=== PATIENT | male | born 1960 | race Caucasian/White ===

== ENCOUNTER 2016-08-28 15:09 | Emergency (ER) | payer OTHER ==
[~2016-08-28] VITALS: Ht 177.8 cm; Wt 92.5 kg
[~2016-08-28 15:09] MED LIST: 378 PO; BACTRIM DS1 TAB PO; CLINDAMYCIN HC300 MG PO; GLU850 PO; HYD25 PO; LAC PO; METFORMIN850 MG PO; METOPROLOL TART25 M1 PO; NOR10 PO; PRAVASTATIN SOD40 M1 PO; PRAVASTATIN20 MG PO; ZESTRIL20 MG PO; ZESTRIL20 PO
[2016-08-28 18:11] VITALS: BP 167/92
== END 2016-08-28 18:11 | disposition home or self-care (01) ==
LOC: ED 15:09
DX: L97.919 Non-pressure chronic ulcer of unspecified part of right lower leg with unspecified severity (principal); E11.9 Type 2 diabetes mellitus without complications; I10 Essential (primary) hypertension; E78.00 Pure hypercholesterolemia, unspecified; Z79.84 Long term (current) use of oral hypoglycemic drugs; Z89.511 Acquired absence of right leg below knee; Z88.0 Allergy status to penicillin
CPT/HCPCS: 82962; J0690; J1885

== ENCOUNTER 2016-10-25 12:18 | Inpatient (IN) | payer OTHER ==
[~2016-10-25] VITALS: Ht 177.8 cm; Wt 92.7 kg
[2016-10-25 16:03] LABS: BASOPHIL % 0.5 % (0-2); PLATELET COUNT 241 x10^3mcL (130-400); RED CELL DISTRIBUTION WIDTH 14.1 % (11.5-14.5)
[2016-10-25 16:13] LABS: CALCIUM 9.2 mg/dL (8.5-10.1); CARBON DIOXIDE 24.4 mmol/L (21-32); CHLORIDE SERUM 100 mmol/L (98-107); CREATININE SERUM 1.1 mg/dL (0.7-1.3); GFR1 > 60 mL/min; GLUCOSE SERUM 210 mg/dL (74-106); POTASSIUM SERUM 4.3 mmol/L (3.5-5.1); SODIUM SERUM 135 mmol/L (136-145)
[2016-10-25] MEDS ORDERED: APAP/HYDROCODON1 T11 PO (17:15)
[2016-10-25 18:00] VITALS: BP 159/82
[2016-10-25 18:03] LABS: CHOLESTEROL/HDL RATIO 2.6; MAGNESIUM 2.1 mg/dL (1.8-2.4); PHOSPHOROUS 3.5 mg/dL (2.5-4.9)
[2016-10-25 18:04] VITALS: BP 159/82
[2016-10-25 18:08] LABS: T3 TOTAL 1.13 ng/mL
[2016-10-25 18:09] LABS: FREE T4 1.13 ng/dL (0.76-1.46); FREE THYROXINE INDEX 3.2 ug/dL (1.4-4.5); T4(THYROXINE) 9.7 ug/dL (4.7-13.3)
[2016-10-25 21:47] VITALS: BP 130/75
[2016-10-26 02:48] LABS: microscopic required? YES; urine erythrocyte TRACE (NEGATIVE)
[2016-10-26 03:03] LABS: AMPHETAMINE QUAL UR NONE DETECTED (NEG <=1000)
[2016-10-26 05:55] VITALS: BP 144/82
[2016-10-26 06:03] LABS: BASOPHIL % 0.3 % (0-2); PLATELET COUNT 232 x10^3mcL (130-400); RED CELL DISTRIBUTION WIDTH 13.9 % (11.5-14.5)
[2016-10-26 06:40] LABS: ALKALINE PHOSPHATASE 221 U/L (46-116); ALT/SGPT 39 U/L (16-63); AST/SGOT 26 U/L (15-37); BILIRUBIN TOTAL 0.7 mg/dL (0.20-1.00); CALCIUM 8.9 mg/dL (8.5-10.1); CARBON DIOXIDE 26.1 mmol/L (21-32); CHLORIDE SERUM 103 mmol/L (98-107); CREATININE SERUM 1.1 mg/dL (0.7-1.3); GFR1 > 60 mL/min; GLUCOSE SERUM 143 mg/dL (74-106); MAGNESIUM 1.9 mg/dL (1.8-2.4); PHOSPHOROUS 3.5 mg/dL (2.5-4.9); POTASSIUM SERUM 4.5 mmol/L (3.5-5.1); SODIUM SERUM 139 mmol/L (136-145)
[2016-10-26 06:41] LABS: ALBUMIN 3.1 g/dL (3.4-5.0); TOTAL PROTEIN, SERUM 8.4 g/dL (6.4-8.2)
[2016-10-26 09:34] VITALS: BP 124/67
[2016-10-26 12:40] LABS: IRON 91 ug/dL (65-170)
[2016-10-26 12:42] LABS: TOTAL IRON BINDING CAPACITY 231 ug/dL (250-450)
[2016-10-26 13:01] LABS: RED BLOOD CELLS 3.99 M/mm3 (4.52-5.90)
[2016-10-26 13:04] VITALS: BP 124/74
[2016-10-26 16:52] VITALS: BP 95/53
[2016-10-26 21:30] VITALS: BP 140/81
[2016-10-27 05:35] VITALS: BP 139/80
[2016-10-27 06:16] LABS: BASOPHIL % 0.4 % (0-2); PLATELET COUNT 193 x10^3mcL (130-400); RED CELL DISTRIBUTION WIDTH 14.2 % (11.5-14.5)
[2016-10-27 06:31] LABS: CARBON DIOXIDE 26.7 mmol/L (21-32); CHLORIDE SERUM 101 mmol/L (98-107); CREATININE SERUM 1.1 mg/dL (0.7-1.3); GFR1 > 60 mL/min; GLUCOSE SERUM 118 mg/dL (74-106); POTASSIUM SERUM 4.9 mmol/L (3.5-5.1); SODIUM SERUM 137 mmol/L (136-145)
[2016-10-27 09:17] VITALS: BP 147/81
[2016-10-27 17:26] VITALS: BP 136/69
[2016-10-27 21:31] VITALS: BP 152/79
[2016-10-28 05:47] VITALS: BP 115/63
[2016-10-28 09:24] VITALS: BP 132/75
[2016-10-28] MEDS ORDERED: LAC PO (13:31)
[2016-10-28] MEDS ORDERED: METFORMIN HCL1000 MG PO (13:32)
[2016-10-28] MEDS ORDERED: NEU300 PO (13:32)
[2016-10-28] MEDS ORDERED: CLEOCIN HCL300 MG PO (13:34)
[2016-10-28] MEDS ORDERED: LEVAQUIN750 MG PO (13:35)
[2016-10-28 14:10] VITALS: BP 132/75
== END 2016-10-28 16:45 | disposition home or self-care (01) | DRG 380 ==
LOC: ED 12:18 → DU 17:09 → MU 10-26 17:38
PROVIDERS: Emergency Medicine; ADMIT Family Medicine
PROC: 0JBR0ZZ Excision of Left Foot Subcutaneous Tissue and Fascia, Open Approach (ICD-10-PCS; principal; 2016-10-25)
PROC: 0HBRXZZ Excision of Toe Nail, External Approach (ICD-10-PCS; 2016-10-27)
PROC: 0HBRXZZ Excision of Toe Nail, External Approach (ICD-10-PCS; 2016-10-27)
PROC: 0HBRXZZ Excision of Toe Nail, External Approach (ICD-10-PCS; 2016-10-27)
PROC: 0HBRXZZ Excision of Toe Nail, External Approach (ICD-10-PCS; 2016-10-27)
PROC: 0HBRXZZ Excision of Toe Nail, External Approach (ICD-10-PCS; 2016-10-27)
DX: E11.621 Type 2 diabetes mellitus with foot ulcer (principal); L97.421 Non-pressure chronic ulcer of left heel and midfoot limited to breakdown of skin; N17.0 Acute kidney failure with tubular necrosis; E44.0 Moderate protein-calorie malnutrition; D68.69 Other thrombophilia; E11.42 Type 2 diabetes mellitus with diabetic polyneuropathy; E11.51 Type 2 diabetes mellitus with diabetic peripheral angiopathy without gangrene; E11.65 Type 2 diabetes mellitus with hyperglycemia; L03.116 Cellulitis of left lower limb; B35.1 Tinea unguium; I10 Essential (primary) hypertension; E78.00 Pure hypercholesterolemia, unspecified; Z68.29 Body mass index [BMI] 29.0-29.9, adult; Z89.511 Acquired absence of right leg below knee; Z79.84 Long term (current) use of oral hypoglycemic drugs; Z85.828 Personal history of other malignant neoplasm of skin
CPT/HCPCS: 80307; 82962; 83880; 84439; 97110-GP; 97116-GP; 97530-GP; J1170; J1956; J2001; J2270; J2405; J3010; J3490; J7030; Q0092

== ENCOUNTER 2017-01-10 15:21 | Inpatient (IN) | payer OTHER ==
[~2017-01-10] VITALS: Ht 177.8 cm; Wt 87.1 kg
[~2017-01-10 15:21] MED LIST changes: +APAP/HYDROCODON1 T11 PO; +CLEOCIN HCL300 MG PO; +LEVAQUIN750 MG PO; +METFORMIN HCL1000 MG PO; +NEU300 PO
[2017-01-10 18:55] LABS: PLATELET COUNT 284 x10^3mcL (130-400)
[2017-01-10 19:06] LABS: BASOPHIL % 0 % (0-2); RED CELL DISTRIBUTION WIDTH 14.7 % (11.5-14.5)
[2017-01-10 19:22] LABS: ALKALINE PHOSPHATASE 283 U/L (46-116); ALT/SGPT 27 U/L (16-63); AST/SGOT 19 U/L (15-37); BILIRUBIN TOTAL 0.81 mg/dL (0.20-1.00); CALCIUM 8.8 mg/dL (8.5-10.1); CARBON DIOXIDE 21.7 mmol/L (21-32); CHLORIDE SERUM 85 mmol/L (98-107); CREATININE SERUM 1.2 mg/dL (0.7-1.3); GFR1 > 60 mL/min; GLUCOSE SERUM 139 mg/dL (74-106); POTASSIUM SERUM 3.9 mmol/L (3.5-5.1); T4(THYROXINE) 9.2 ug/dL (4.7-13.3)
[2017-01-10 19:25] LABS: ALBUMIN 3.2 g/dL (3.4-5.0); TOTAL PROTEIN, SERUM 8.7 g/dL (6.4-8.2)
[2017-01-10 19:27] LABS: SODIUM SERUM 117 mmol/L (136-145)
[2017-01-10 19:57] LABS: UA SPECIFIC GRAVITY <=1.005 (1.005-1.035); microscopic required? YES; urine erythrocyte NEGATIVE (NEGATIVE)
[2017-01-10] MEDS ORDERED: HYDRALAZINE HCL25 MG PO (20:36)
[2017-01-10] MEDS ORDERED: LISINOPRIL2.5 MG PO (20:38)
[2017-01-10] MEDS ORDERED: NOR10 PO (20:38)
[2017-01-10] MEDS ORDERED: FLUOXETINE HYDR20 M2 PO (20:38)
[2017-01-10] MEDS ORDERED: TOPROL XL25 MG PO (20:38)
[2017-01-10] MEDS ORDERED: METFORMIN HCL1000 MG PO (20:39)
[2017-01-10] MEDS ORDERED: APAP/HYDROCODON1 T13 PO (20:39)
[2017-01-10 21:00] VITALS: BP 140/73
[2017-01-10 21:28] VITALS: BP 140/73
[2017-01-10 21:43] LABS: MAGNESIUM 1.8 mg/dL (1.8-2.4); PHOSPHOROUS 3.2 mg/dL (2.5-4.9)
[2017-01-10 21:44] LABS: CHOLESTEROL/HDL RATIO 2.5
[2017-01-10 22:00] VITALS: BP 124/78
[2017-01-11 05:04] LABS: BASOPHIL % 0.4 % (0-2); PLATELET COUNT 258 x10^3mcL (130-400)
[2017-01-11 05:09] LABS: RED CELL DISTRIBUTION WIDTH 14.8 % (11.5-14.5)
[2017-01-11 05:11] LABS: CALCIUM 8.4 mg/dL (8.5-10.1); CARBON DIOXIDE 23.6 mmol/L (21-32); CHLORIDE SERUM 93 mmol/L (98-107); GFR1 > 60 mL/min; GLUCOSE SERUM 101 mg/dL (74-106); MAGNESIUM 1.7 mg/dL (1.8-2.4); PHOSPHOROUS 3.1 mg/dL (2.5-4.9); POTASSIUM SERUM 4.4 mmol/L (3.5-5.1)
[2017-01-11 05:14] LABS: SODIUM SERUM 124 mmol/L (136-145)
[2017-01-11 06:19] VITALS: BP 138/73
[2017-01-11 09:37] LABS: CALCIUM 8.3 mg/dL (8.5-10.1); CARBON DIOXIDE 26.2 mmol/L (21-32); CHLORIDE SERUM 94 mmol/L (98-107); GFR1 > 60 mL/min; GLUCOSE SERUM 109 mg/dL (74-106)
[2017-01-11 09:48] VITALS: BP 115/62
[2017-01-11 10:07] LABS: SODIUM SERUM 124 mmol/L (136-145)
[2017-01-11 11:35] LABS: CALCIUM 8.5 mg/dL (8.5-10.1); CHLORIDE SERUM 96 mmol/L (98-107); GFR1 > 60 mL/min; GLUCOSE SERUM 111 mg/dL (74-106); POTASSIUM SERUM 4.5 mmol/L (3.5-5.1); SODIUM SERUM 128 mmol/L (136-145)
[2017-01-11 14:53] VITALS: BP 100/53
[2017-01-11 16:54] LABS: CALCIUM 8.9 mg/dL (8.5-10.1); CARBON DIOXIDE 27.9 mmol/L (21-32); CHLORIDE SERUM 96 mmol/L (98-107); GFR1 > 60 mL/min; GLUCOSE SERUM 181 mg/dL (74-106); POTASSIUM SERUM 4.5 mmol/L (3.5-5.1); SODIUM SERUM 130 mmol/L (136-145)
[2017-01-11 17:25] VITALS: BP 104/55
[2017-01-11 20:55] LABS: CALCIUM 8.7 mg/dL (8.5-10.1); CARBON DIOXIDE 28.5 mmol/L (21-32); CHLORIDE SERUM 99 mmol/L (98-107); GFR1 > 60 mL/min; GLUCOSE SERUM 114 mg/dL (74-106); POTASSIUM SERUM 5.2 mmol/L (3.5-5.1); SODIUM SERUM 132 mmol/L (136-145)
[2017-01-11 22:18] VITALS: BP 118/69
[2017-01-12 00:46] LABS: CALCIUM 8.4 mg/dL (8.5-10.1); CARBON DIOXIDE 27.4 mmol/L (21-32); CHLORIDE SERUM 99 mmol/L (98-107); CREATININE SERUM 1.2 mg/dL (0.7-1.3); GFR1 > 60 mL/min; GLUCOSE SERUM 84 mg/dL (74-106); POTASSIUM SERUM 4.7 mmol/L (3.5-5.1); SODIUM SERUM 132 mmol/L (136-145)
[2017-01-12 06:08] VITALS: BP 102/55
[2017-01-12 09:25] VITALS: BP 93/69
[2017-01-12 13:50] VITALS: BP 112/68
[2017-01-12 21:02] VITALS: BP 128/73
[2017-01-13 06:15] VITALS: BP 111/59
[2017-01-13 06:45] LABS: BASOPHIL % 0.5 % (0-2); PLATELET COUNT 249 x10^3mcL (130-400)
[2017-01-13 06:53] LABS: CALCIUM 8.6 mg/dL (8.5-10.1); CHLORIDE SERUM 103 mmol/L (98-107); GFR1 > 60 mL/min; GLUCOSE SERUM 97 mg/dL (74-106); MAGNESIUM 1.5 mg/dL (1.8-2.4); POTASSIUM SERUM 4.8 mmol/L (3.5-5.1); RED CELL DISTRIBUTION WIDTH 15.2 % (11.5-14.5); SODIUM SERUM 136 mmol/L (136-145)
[2017-01-13 08:37] VITALS: BP 139/76
[2017-01-13 13:50] VITALS: BP 116/63
[2017-01-13 17:11] VITALS: BP 119/65
[2017-01-13 20:16] VITALS: BP 119/69
[2017-01-14 05:19] VITALS: BP 120/70
[2017-01-14 09:47] VITALS: BP 103/59
[2017-01-14 09:57] VITALS: BP 96/55
[2017-01-14 13:50] VITALS: BP 130/86
[2017-01-14 14:37] VITALS: BP 130/86
[2017-01-14] MEDS ORDERED: NOR10T PO (15:27)
== END 2017-01-14 16:27 | disposition home or self-care (01) | DRG 380 ==
LOC: ED 15:21 → DU 19:32 → ED 19:32 → DU 20:52
PROVIDERS: Emergency Medicine; Podiatrist Foot & Ankle Surgery; ADMIT Family Medicine
PROC: 0JBR0ZZ Excision of Left Foot Subcutaneous Tissue and Fascia, Open Approach (ICD-10-PCS; principal; 2017-01-11 11:30)
DX: E11.621 Type 2 diabetes mellitus with foot ulcer (principal); L97.529 Non-pressure chronic ulcer of other part of left foot with unspecified severity; L97.429 Non-pressure chronic ulcer of left heel and midfoot with unspecified severity; N17.0 Acute kidney failure with tubular necrosis; E87.1 Hypo-osmolality and hyponatremia; D68.69 Other thrombophilia; E11.51 Type 2 diabetes mellitus with diabetic peripheral angiopathy without gangrene; E11.65 Type 2 diabetes mellitus with hyperglycemia; E78.5 Hyperlipidemia, unspecified; I10 Essential (primary) hypertension; E86.0 Dehydration; D63.8 Anemia in other chronic diseases classified elsewhere; F10.10 Alcohol abuse, uncomplicated; Z68.27 Body mass index [BMI] 27.0-27.9, adult; Z85.828 Personal history of other malignant neoplasm of skin; Z89.511 Acquired absence of right leg below knee; Z79.84 Long term (current) use of oral hypoglycemic drugs; Z79.891 Long term (current) use of opiate analgesic
CPT/HCPCS: 82962; 83880; J1170; J1644; J1956; J2001; J3475; J7030; Q0092

== ENCOUNTER 2017-04-14 16:27 | Emergency (ER) | payer OTHER ==
[~2017-04-14] VITALS: Ht 177.8 cm; Wt 88.5 kg
[~2017-04-14 16:27] MED LIST changes: +APAP/HYDROCODON1 T13 PO; +FLUOXETINE HYDR20 M2 PO; +HYDRALAZINE HCL25 MG PO; +LISINOPRIL2.5 MG PO; +NOR10T PO; +TOPROL XL25 MG PO
[2017-04-14 19:54] VITALS: BP 160/82
== END 2017-04-14 19:50 | disposition home or self-care (01) ==
LOC: ED 16:27
DX: L02.415 Cutaneous abscess of right lower limb (principal); I10 Essential (primary) hypertension; E11.9 Type 2 diabetes mellitus without complications
CPT/HCPCS: 90715; J2001

== ENCOUNTER 2019-07-02 19:32 | Inpatient (IN) | payer OTHER ==
[~2019-07-02] VITALS: Ht 177.8 cm; Wt 91.7 kg
[2019-07-02 20:41] LABS: BASOPHIL % 0.8 % (0-2); PLATELET COUNT 283 x10^3mcL (130-400); RED CELL DISTRIBUTION WIDTH 14.4 % (11.5-14.5)
[2019-07-02 21:10] LABS: ALBUMIN 2.6 g/dL (3.4-5.0); CARBON DIOXIDE 23.9 mmol/L (21-32); CREATININE SERUM 1.9 mg/dL (0.7-1.3); POTASSIUM SERUM 5.4 mmol/L (3.5-5.1); TOTAL PROTEIN, SERUM 8.5 g/dL (6.4-8.2)
[2019-07-02 21:11] LABS: BILIRUBIN TOTAL 0.22 mg/dL (0.20-1.00); C REACTIVE PROTEIN 0.7 mg/dL (<=0.9); CALCIUM 8.8 mg/dL (8.5-10.1)
[2019-07-02 21:31] LABS: ERYTHROCYTE SED RATE 85 mm/hr (0-20)
[2019-07-02] MEDS ORDERED: LOPRESSOR50 M1 PO (21:46)
[2019-07-02 22:57] VITALS: BP 136/65
[2019-07-02 23:00] VITALS: Ht 177.8 cm; Wt 91.7 kg
[2019-07-02 23:27] LABS: MAGNESIUM 2.3 mg/dL (1.8-2.4); PHOSPHOROUS 4.1 mg/dL (2.5-4.9)
[2019-07-03] MEDS ORDERED: LOPRESSOR50 M1 PO (00:29)
[2019-07-03 05:47] VITALS: BP 115/68
[2019-07-03 07:05] LABS: POTASSIUM SERUM 5.2 mmol/L (3.5-5.1)
[2019-07-03 07:06] LABS: CALCIUM 8.5 mg/dL (8.5-10.1); CARBON DIOXIDE 24.8 mmol/L (21-32); CREATININE SERUM 1.9 mg/dL (0.7-1.3); MAGNESIUM 2.1 mg/dL (1.8-2.4)
[2019-07-03 07:07] LABS: BASOPHIL % 0.5 % (0-2); PLATELET COUNT 271 x10^3mcL (130-400); RED CELL DISTRIBUTION WIDTH 14.3 % (11.5-14.5)
[2019-07-03 07:24] LABS: PHOSPHOROUS 4.1 mg/dL (2.5-4.9)
[2019-07-03 08:48] VITALS: BP 118/73
[2019-07-03 13:17] VITALS: BP 133/74
[2019-07-03 14:22] LABS: microscopic required? YES; urine erythrocyte NEGATIVE (NEGATIVE)
[2019-07-03 16:24] VITALS: BP 107/63
[2019-07-03 20:00] VITALS: BP 113/62
[2019-07-04 05:59] VITALS: BP 135/72
[2019-07-04 06:37] LABS: BASOPHIL % 0.5 % (0-2); PLATELET COUNT 263 x10^3mcL (130-400); RED CELL DISTRIBUTION WIDTH 14.3 % (11.5-14.5)
[2019-07-04 06:57] LABS: CALCIUM 8.7 mg/dL (8.5-10.1); CARBON DIOXIDE 25.3 mmol/L (21-32); MAGNESIUM 2.4 mg/dL (1.8-2.4); PHOSPHOROUS 4.9 mg/dL (2.5-4.9)
[2019-07-04 08:35] VITALS: BP 133/68
[2019-07-04 12:49] VITALS: BP 113/64
[2019-07-04 17:42] VITALS: BP 120/69
[2019-07-04 21:16] VITALS: BP 109/61
[2019-07-05 05:29] VITALS: BP 135/75
[2019-07-05 06:29] LABS: BASOPHIL % 0.4 % (0-2); PLATELET COUNT 231 x10^3mcL (130-400); RED CELL DISTRIBUTION WIDTH 13.9 % (11.5-14.5)
[2019-07-05 06:52] LABS: CARBON DIOXIDE 24.2 mmol/L (21-32)
[2019-07-05 06:53] LABS: CALCIUM 8.8 mg/dL (8.5-10.1); CREATININE SERUM 1.7 mg/dL (0.7-1.3); MAGNESIUM 2.5 mg/dL (1.8-2.4); PHOSPHOROUS 4.5 mg/dL (2.5-4.9)
[2019-07-05 09:11] VITALS: BP 141/76
[2019-07-05] MEDS ORDERED: CLEOCIN HCL300 MG PO (10:19)
[2019-07-05 12:32] VITALS: BP 134/69
[2019-07-05 14:58] VITALS: BP 134/69
== END 2019-07-05 16:20 | disposition home or self-care (01) | DRG 383 ==
LOC: ED 19:32 → MU 21:41
PROVIDERS: Emergency Medicine; Student in an Organized Health Care Education/Training Program; ADMIT Internal Medicine
DX: L03.116 Cellulitis of left lower limb (principal); N17.0 Acute kidney failure with tubular necrosis; E11.621 Type 2 diabetes mellitus with foot ulcer; E11.65 Type 2 diabetes mellitus with hyperglycemia; I12.9 Hypertensive chronic kidney disease with stage 1 through stage 4 chronic kidney disease, or unspecified chronic kidney disease; E87.5 Hyperkalemia; E11.22 Type 2 diabetes mellitus with diabetic chronic kidney disease; N18.3 Chronic kidney disease, stage 3 (moderate); Z68.31 Body mass index [BMI] 31.0-31.9, adult; Z89.511 Acquired absence of right leg below knee; Z79.84 Long term (current) use of oral hypoglycemic drugs; Z85.828 Personal history of other malignant neoplasm of skin
CPT/HCPCS: 82962; 97112-GP; G0378; J1170; J3490; J7050; J7060; Q0092